=== PATIENT | female | born 1980 | race Asian ===

== ENCOUNTER 2025-04-16 16:17 | Emergency (ER) | payer SELFPAY ==
[2025-04-16 16:20] VITALS: BP 156/93; PULSE 89; RESP 20; TEMP 36.6; O2SAT 99; BMI 23.4
--- NOTE | 2025-04-16 16:29 | ED.PSYCH ---
HPI - Psych <Liat Clinton DO - Last Filed: 04/17/25 17:57> General Chief Complaint: Psychiatric Symptoms Stated Complaint: SI c attempt Time Seen by Provider: 04/16/25 16:21 Source: patient, EMS, RN notes reviewed, old records reviewed and other (law enforcement) Mode of arrival: EMS Limitations: no limitations History of Present Illness HPI Narrative: 44-year-old female history of chronic suicidal ideation is visiting the area with her boyfriend. Was not cap [place] had text or called her boyfriend and told him that she was going to jump off the rocks into the water. Law enforcement EMS arrived patient did attempt to start to jump, they pulled her back. Patient did not have any fall or injuries. She was transported here via EMS. They did use soft restraints via transport and she did not wish to be transported but was not aggressive or violent towards them. Patient states that she wants to , she was quite concerned about bills and her finances and indicates this maybe 1 of the triggers. She does not answer all questions here in the department. Denies daily medications to medics. Did endorse to them she was had chronic suicidal ideation. She does not appear intoxicated but does not answer if she was had any alcohol, tobacco or other ingestions today. She asked if we can has a traffic law attorney she can leave and states she would rather go to senior care because that would be cheaper. Related Data Allergies Allergy/AdvReac Type Severity Reaction Status Date / Time No Known Drug Allergies Allergy Verified 04/16/25 17:29 Review of Systems <Liat Clinton DO - Last Filed: 04/17/25 17:57> Review of Systems ROS Unobtainable: All systems reviewed & are unremarkable except as noted in HPI and below Patient History <Liat Clinton DO - Last Filed: 04/17/25 17:57> Social History Smoking Status: Never smoker Exam <Liat Clinton DO - Last Filed: 04/17/25 17:57> Narrative Exam Narrative: GENERAL: Alert and oriented x three, female in moderate distress. Patient does not appear intoxicated. Patient was tearful. HEENT: Head normocephalic, atraumatic, EOMI, pupils reactive, face symmetric, moist mucous membranes NECK: Supple, full range of motion CARDIOVASCULAR: Regular rate and rhythm without murmurs, rubs or gallops. RESPIRATORY: Breath sounds equal bilaterally, no wheezes rales or rhonchi. ABDOMEN: Soft, nontender. Normoactive bowel sounds all 4 quadrants. No guarding or rebound, rigidity, no mass EXTREMITIES: Normal range of motion, no clubbing or edema. Neurovascularly intact NEUROLOGICAL: Cranial nerves II through XII grossly intact. Moving all extremities SKIN: Warm, dry, no petechiae, no rashes or lesions. PSYCH: Endorses SI, depressive thoughts. Initial Vital Signs Initial Vital Signs: Vital Signs Temperature 97.8 F 04/16/25 16:20 Pulse Rate 89 04/16/25 16:20 Respiratory Rate 20 04/16/25 16:20 Blood Pressure 156/93 H 04/16/25 16:20 Pulse Oximetry 99 04/16/25 16:20 Oxygen Delivery Method Room Air 04/16/25 16:20 <Ruth Anderson DO - Last Filed: 04/17/25 02:06> Initial Vital Signs Initial Vital Signs: Vital Signs Temperature 97.8 F 04/16/25 16:20 Pulse Rate 89 04/16/25 16:20 Respiratory Rate 20 04/16/25 16:20 Blood Pressure 156/93 H 04/16/25 16:20 Pulse Oximetry 99 04/16/25 16:20 Oxygen Delivery Method Room Air 04/16/25 16:20 Course <Liat Clinton DO - Last Filed: 04/17/25 17:57> Orders Ordered: Discontinued Medications Acetaminophen (Acetaminophen 325 Mg Tablet) 650 mg PO NOW ONE Stop: 04/16/25 18:17 Last Admin: 04/16/25 18:26 Dose: 650 mg Documented By: TYLER Vital Signs Vital signs: Vital Signs - 8 hr 04/16/25 20:34 04/17/25 00:39 Temperature 97.9 F 98.1 F Pulse Rate 66 71 Respiratory Rate 16 18 Blood Pressure 110/66 116/71 Pulse Oximetry 98 Oxygen Delivery Method Room Air Room Air <DO Gurpreet Lopez Last Filed: 04/17/25 02:06> Orders Ordered: Discontinued Medications Acetaminophen (Acetaminophen 325 Mg Tablet) 650 mg PO NOW ONE Stop: 05/20/25 18:17 Last Admin: 04/16/25 18:26 Dose: 650 mg Documented By: TYLER Vital Signs Vital signs: Vital Signs - 8 hr 04/16/25 20:34 04/17/25 00:39 Temperature 97.9 F 98.1 F Pulse Rate 66 71 Respiratory Rate 16 18 Blood Pressure 110/66 116/71 Pulse Oximetry 98 Oxygen Delivery Method Room Air Room Air MDM - Psych <Liat Rios Oz, - Last Filed: 04/17/25 17:57> Lab Data 04/16/25 16:34 04/16/25 16:34 Labs: Lab Results 04/16/25 04/16/25 04/16/25 Range/Units 16:20 16:34 16:34 WBC 8.5 (4.5-11.0) X10^3/uL RBC 5.05 (4.0-5.2) X10^6/uL Hgb 12.8 (12.0-16.0) g/dL Hct 39.4 (36-46) % MCV 77.9 L (80-100) fL MCH 25.4 L (26-34) PG MCHC 32.5 (30-36) % RDW 13.6 (11.6-14.8) % Plt Count 404 H (150-400) X10^3/uL Neut % (Auto) 50.3 (50-75) % Lymph % (Auto) 42.9 H (25-40) % [place] % (Auto) 5.1 (3-14) % Eos % (Auto) 1.2 L (2-4) % Baso % (Auto) 0.5 (0-2) % Neut # (Auto) 4300 (0669-6454) /uL Lymph # (Auto) 3600 (9720-3646) /uL [place] # (Auto) 400 (0-900) /uL Eos # (Auto) 100 (0-450) /uL Baso # (Auto) 0 (0-100) /uL Sodium 145 (137-145) mmol/L Potassium 3.7 (3.4-5.1) mmol/L Chloride 108 H (98-107) mmol/L Carbon Dioxide 25 (22-32) mmol/L BUN 10 (7-17) mg/dL Creatinine 0.42 L (0.52-1.04) mg/dL Estimated GFR > 60 (>60) mL/min BUN/Creatinine Ratio 23.8 H (6-22) Glucose 95 (70-99) mg/dL Calcium 9.2 (8.4-10.2) mg/dL Total Bilirubin 0.4 (0.2-1.3) mg/dL AST 31 (14-36) IU/L ALT 24 (<35) IU/L Alkaline Phosphatase 54 (38-126) U/L Total Protein 8.5 H (6.3-8.2) g/dL Albumin 4.8 (3.5-5.0) g/dL Globulin 3.7 (1.7-4.1) g/dL Albumin/Globulin Ratio 1.3 (1.0-2.8) TSH 0.30 L (0.47-4.68) uIU/mL Free T4 1.44 (0.78-2.19) ng/dL Salicylates < 1.0 (<20) mg/dL U Opiates 300ng/mL cut (Negative) Ur Oxycodone Screen (Negative) Urine Methadone Screen (Negative) Acetaminophen < 10 (10-30) ug/mL Ur Barbiturates Screen (Negative) U Tricyclic Antidepress (Negative) Ur Phencyclidine Scrn (Negative) Ur Amphetamines Screen (Negative) U Methamphetamines Scrn (Negative) Ur MDMA Scrn (Ecstasy) (Negative) U Benzodiazepines Scrn (Negative) Urine Cocaine Screen (Negative) U Marijuana (THC) Screen (Negative) Urine pH (Normal) Urine Specific [place] (Normal) Ethyl Alcohol 146 H Cancelled ( - 10) mg/dL Ur Creatinine (Normal) SARS-CoV-2 (PCR) Negative (Negative) 04/16/25 04/16/25 Range/Units 16:42 20:00 WBC (4.5-11.0) X10^3/uL RBC (4.0-5.2) X10^6/uL Hgb (12.0-16.0) g/dL Hct (36-46) % MCV (80-100) fL MCH (26-34) PG MCHC (30-36) % RDW (11.6-14.8) % Plt Count (150-400) X10^3/uL Neut % (Auto) (50-75) % Lymph % (Auto) (25-40) % [place] % (Auto) (3-14) % Eos % (Auto) (2-4) % Baso % (Auto) (0-2) % Neut # (Auto) (8616-1428) /uL Lymph # (Auto) (3143-4166) /uL [place] # (Auto) (0-900) /uL Eos # (Auto) (0-450) /uL Baso # (Auto) (0-100) /uL Sodium (137-145) mmol/L Potassium (3.4-5.1) mmol/L Chloride (98-107) mmol/L Carbon Dioxide (22-32) mmol/L BUN (7-17) mg/dL Creatinine (0.52-1.04) mg/dL Estimated GFR (>60) mL/min BUN/Creatinine Ratio (6-22) Glucose (70-99) mg/dL Calcium (8.4-10.2) mg/dL Total Bilirubin (0.2-1.3) mg/dL AST (14-36) IU/L ALT (<35) IU/L Alkaline Phosphatase (38-126) U/L Total Protein (6.3-8.2) g/dL Albumin (3.5-5.0) g/dL Globulin (1.7-4.1) g/dL Albumin/Globulin Ratio (1.0-2.8) TSH (0.47-4.68) uIU/mL Free T4 (0.78-2.19) ng/dL Salicylates (<20) mg/dL U Opiates 300ng/mL cut Negative (Negative) Ur Oxycodone Screen Negative (Negative) Urine Methadone Screen Negative (Negative) Acetaminophen (10-30) ug/mL Ur Barbiturates Screen Negative (Negative) U Tricyclic Antidepress Negative (Negative) Ur Phencyclidine Scrn Negative (Negative) Ur Amphetamines Screen Negative (Negative) U Methamphetamines Scrn Negative (Negative) Ur MDMA Scrn (Ecstasy) Negative (Negative) U Benzodiazepines Scrn Negative (Negative) Urine Cocaine Screen Negative (Negative) U Marijuana (THC) Screen Negative (Negative) Urine pH Normal (Normal) Urine Specific [place] Normal (Normal) Ethyl Alcohol 68 H ( - 10) mg/dL Ur Creatinine Normal (Normal) SARS-CoV-2 (PCR) (Negative) Urine Dip Bedside Urine Glucose Negative Bedside Urine Bilirubin - Negative Bedside Urine Ketone - Negative Urine Specific [place] 1.010 Bedside Urine Occult Blood +/- Bedside Urine pH 6.5 Bedside Urine Protein - Negative Bedside Urine Urobilinogen - Negative Bedside Urine Nitrite - Negative Bedside Urine Leukocytes +/- 15 Esterase MDM Narrative Medical decision making narrative: 44-year-old female with suicidal ideation and attempt witnessed by law enforcement attempting to jump off thyroxine cap [place]. Had also messaged her boyfriend. Patient indicates she has a lot of financial stressors which maybe triggering some of this. Law enforcement initially at bedside was clear with the patient myself as well as law enforcement that she can not leave. Patient is aware that if she attempts to run away she would be stopped and if left the department law enforcement would be contacted to bring her back. Patient signed out to Dr. Anderson, while awaiting work and final disposition. Dr. Anderson-patient 44-year-old female signed out to me by Dr. Clinton. I have seen evaluated her myself. She was about to jump off a ray, when she was pulled back by a police officers. She was intoxicated at the time with an alcohol level of 146. Upon re-evaluation alcohol level 68. Reports that she was ?fine.She does not talk to her boyfriend about what she was feeling she keeps everything inside she was really not able to contract for safety. All of her family is in [facility] [place]. She has 2 sons who want to come live with her should she does not have home or space. She was having significant stressors and financial difficulty not able to accommodate that at this time. Constantly worried about bills. Feels safe at home with her boyfriend. Due to patient's attempt today, almost jumped off a ray inability to contract for safety not wanting medical treatment at this time I do think she would benefit from DCR evaluation. DCR evaluated patient this time not detainable she was not want to go voluntarily. Can contract for safety with him. She will be staying with a boyfriend for the next couple of days. I have discussed with patient myself as well that if feeling like she may harm herself that she needs to reach out and can come to the emergency department any time. Discussion with patient recommended that she come back to the emergency department at any time she understands she states that she will talk with the boyfriend if needed <Ruth Anderson, DO - Last Filed: 04/17/25 02:06> Lab Data Labs: Lab Results 04/16/25 04/16/25 04/16/25 Range/Units 16:20 16:34 16:34 WBC 8.5 (4.5-11.0) X10^3/uL RBC 5.05 (4.0-5.2) X10^6/uL Hgb 12.8 (12.0-16.0) g/dL Hct 39.4 (36-46) % MCV 77.9 L (80-100) fL MCH 25.4 L (26-34) PG MCHC 32.5 (30-36) % RDW 13.6 (11.6-14.8) % Plt Count 404 H (150-400) X10^3/uL Neut % (Auto) 50.3 (50-75) % Lymph % (Auto) 42.9 H (25-40) % [place] % (Auto) 5.1 (3-14) % Eos % (Auto) 1.2 L (2-4) % Baso % (Auto) 0.5 (0-2) % Neut # (Auto) 4300 (9451-4583) /uL Lymph # (Auto) 3600 (1859-8266) /uL [place] # (Auto) 400 (0-900) /uL Eos # (Auto) 100 (0-450) /uL Baso # (Auto) 0 (0-100) /uL Sodium 145 (137-145) mmol/L Potassium 3.7 (3.4-5.1) mmol/L Chloride 108 H (98-107) mmol/L Carbon Dioxide 25 (22-32) mmol/L BUN 10 (7-17) mg/dL Creatinine 0.42 L (0.52-1.04) mg/dL Estimated GFR > 60 (>60) mL/min BUN/Creatinine Ratio 23.8 H (6-22) Glucose 95 (70-99) mg/dL Calcium 9.2 (8.4-10.2) mg/dL Total Bilirubin 0.4 (0.2-1.3) mg/dL AST 31 (14-36) IU/L ALT 24 (<35) IU/L Alkaline Phosphatase 54 (38-126) U/L Total Protein 8.5 H (6.3-8.2) g/dL Albumin 4.8 (3.5-5.0) g/dL Globulin 3.7 (1.7-4.1) g/dL Albumin/Globulin Ratio 1.3 (1.0-2.8) TSH 0.30 L (0.47-4.68) uIU/mL Free T4 1.44 (0.78-2.19) ng/dL Salicylates < 1.0 (<20) mg/dL U Opiates 300ng/mL cut (Negative) Ur Oxycodone Screen (Negative) Urine Methadone Screen (Negative) Acetaminophen < 10 (10-30) ug/mL Ur Barbiturates Screen (Negative) U Tricyclic Antidepress (Negative) Ur Phencyclidine Scrn (Negative) Ur Amphetamines Screen (Negative) U Methamphetamines Scrn (Negative) Ur MDMA Scrn (Ecstasy) (Negative) U Benzodiazepines Scrn (Negative) Urine Cocaine Screen (Negative) U Marijuana (THC) Screen (Negative) Urine pH (Normal) Urine Specific [place] (Normal) Ethyl Alcohol 146 H Cancelled ( - 10) mg/dL Ur Creatinine (Normal) SARS-CoV-2 (PCR) Negative (Negative) 04/16/25 04/16/25 Range/Units 16:42 20:00 WBC (4.5-11.0) X10^3/uL RBC (4.0-5.2) X10^6/uL Hgb (12.0-16.0) g/dL Hct (36-46) % MCV (80-100) fL MCH (26-34) PG MCHC (30-36) % RDW (11.6-14.8) % Plt Count (150-400) X10^3/uL Neut % (Auto) (50-75) % Lymph % (Auto) (25-40) % [place] % (Auto) (3-14) % Eos % (Auto) (2-4) % Baso % (Auto) (0-2) % Neut # (Auto) (5347-5516) /uL Lymph # (Auto) (4902-0909) /uL [place] # (Auto) (0-900) /uL Eos # (Auto) (0-450) /uL Baso # (Auto) (0-100) /uL Sodium (137-145) mmol/L Potassium (3.4-5.1) mmol/L Chloride (98-107) mmol/L Carbon Dioxide (22-32) mmol/L BUN (7-17) mg/dL Creatinine (0.52-1.04) mg/dL Estimated GFR (>60) mL/min BUN/Creatinine Ratio (6-22) Glucose (70-99) mg/dL Calcium (8.4-10.2) mg/dL Total Bilirubin (0.2-1.3) mg/dL AST (14-36) IU/L ALT (<35) IU/L Alkaline Phosphatase (38-126) U/L Total Protein (6.3-8.2) g/dL Albumin (3.5-5.0) g/dL Globulin (1.7-4.1) g/dL Albumin/Globulin Ratio (1.0-2.8) TSH (0.47-4.68) uIU/mL Free T4 (0.78-2.19) ng/dL Salicylates (<20) mg/dL U Opiates 300ng/mL cut Negative (Negative) Ur Oxycodone Screen Negative (Negative) Urine Methadone Screen Negative (Negative) Acetaminophen (10-30) ug/mL Ur Barbiturates Screen Negative (Negative) U Tricyclic Antidepress Negative (Negative) Ur Phencyclidine Scrn Negative (Negative) Ur Amphetamines Screen Negative (Negative) U Methamphetamines Scrn Negative (Negative) Ur MDMA Scrn (Ecstasy) Negative (Negative) U Benzodiazepines Scrn Negative (Negative) Urine Cocaine Screen Negative (Negative) U Marijuana (THC) Screen Negative (Negative) Urine pH Normal (Normal) Urine Specific [place] Normal (Normal) Ethyl Alcohol 68 H ( - 10) mg/dL Ur Creatinine Normal (Normal) SARS-CoV-2 (PCR) (Negative) Urine Dip Bedside Urine Glucose Negative Bedside Urine Bilirubin - Negative Bedside Urine Ketone - Negative Urine Specific [place] 1.010 Bedside Urine Occult Blood +/- Bedside Urine pH 6.5 Bedside Urine Protein - Negative Bedside Urine Urobilinogen - Negative Bedside Urine Nitrite - Negative Bedside Urine Leukocytes +/- 15 Esterase MDM Narrative Medical decision making narrative: 44-year-old female with suicidal ideation and attempt witnessed by law enforcement attempting to jump off thyroxine [place]. Had also messaged her boyfriend. Patient indicates she has a lot of financial stressors which maybe triggering some of this. Labs Urine Law enforcement initially at bedside was clear with the patient myself as well as law enforcement that she can not leave. Patient is aware that if she attempts to run away she would be stopped and if left the department law enforcement would be contacted to bring her back. Dr. Anderson-patient 44-year-old female signed out to me by Dr. Clinton. I have seen evaluated her myself. She was about to jump off a ray, when she was pulled back by a police officers. She was intoxicated at the time with an alcohol level of 146. Upon re-evaluation alcohol level 68. Reports that she was ?fine.She does not talk to her boyfriend about what she was feeling she keeps everything inside she was really not able to contract for safety. All of her family is in [facility] [place]. She has 2 sons who want to come live with her should she does not have home or space. She was having significant stressors and financial difficulty not able to accommodate that at this time. Constantly worried about bills. Feels safe at home with her boyfriend. Due to patient's attempt today, almost jumped off a ray inability to contract for safety not wanting medical treatment at this time I do think she would benefit from DCR evaluation. DCR evaluated patient this time not detainable she was not want to go voluntarily. Can contract for safety with him. She will be staying with a boyfriend for the next couple of days. I have discussed with patient myself as well that if feeling like she may harm herself that she needs to reach out and can come to the emergency department any time. Discussion with patient recommended that she come back to the emergency department at any time she understands she states that she will talk with the boyfriend if needed Discharge Plan Departure Patient Disposition: Home Clinical Impression: Suicidal ideation, Depression Instructions: DI for Suicidal Ideation-Adult Activity Restrictions/Additional Instructions: *You have been diagnosed with suicidal ideations depression *What to do: The ER is open every day all day, you are welcome to return at any time if you feel like you need help If you are feeling suicidal or having suicidal thoughts: Call: Suicide Hotline: 889 Visit: www.[employer].org Text: 988 *Continue to take medications as directed *Follow up with your primary care provider in 2-3 days or call [phone] *Return to ER if you should have increasing thoughts of harming self or any new, worsening or concerning symptoms Stand Alone Forms: Patient Portal/API/Survey
[2025-04-16 16:57] LABS: Ur Creatinine Normal (Normal); Ur Specific Gravity Normal (Normal); Urine Amphetamines Negative (Negative); Urine Barbiturates Negative (Negative); Urine Benzodiazepines Negative (Negative); Urine Cocaine Negative (Negative); Urine MDMA Negative (Negative); Urine Methadone Negative (Negative); Urine Opiates Negative (Negative); Urine Oxycodone Negative (Negative); Urine Phencyclidine Negative (Negative); Urine THC Negative (Negative); Urine Tricyclic Antidepressant Negative (Negative); Urine pH Normal (Normal)
[2025-04-16 17:01] LABS: Acetaminophen < 10 ug/mL (10-30); Alanine Aminotransferase 24 IU/L (<35); Albumin 4.8 g/dL (3.5-5.0); Albumin Globulin Ratio 1.3 (1.0-2.8); Alkaline Phosphatase 54 U/L (38-126); Aspartate Aminotransferase 31 IU/L (14-36); BUN Creatinine Ratio 23.8 (6-22); Bilirubin Total 0.4 mg/dL (0.2-1.3); Blood Urea Nitrogen 10 mg/dL (7-17); Calcium 9.2 mg/dL (8.4-10.2); Carbon Dioxide 25 mmol/L (22-32); Chloride 108 mmol/L (98-107); Estimated Glomerular Filt Rate > 60 mL/min (>60); Ethanol (ETOH) 146 mg/dL; Globulin 3.7 g/dL (1.7-4.1); Glucose 95 mg/dL (70-99); HEMOLYSIS < 15 (0-50); Potassium 3.7 mmol/L (3.4-5.1); Salicylate < 1.0 mg/dL (<20); Sodium 145 mmol/L (137-145); Total Protein 8.5 g/dL (6.3-8.2)
[2025-04-16 17:07] LABS: Add Manual Diff / Slide Review NO; Basophils Absolute Auto 0 /uL (0-100); Basophils Percent Auto 0.5 % (0-2); Eosinophils Absolute Auto 100 /uL (0-450); Eosinophils Percent Auto 1.2 % (2-4); Hematocrit 39.4 % (36-46); Hemoglobin 12.8 g/dL (12.0-16.0); Lymphocytes Absolute Auto 3600 /uL (1100-4500); Lymphocytes Percent Auto 42.9 % (25-40); Mean Corpuscular HGB Conc 32.5 % (30-36); Mean Corpuscular Hemoglobin 25.4 PG (26-34); Mean Corpuscular Volume 77.9 fL (80-100); Monocytes Absolute Auto 400 /uL (0-900); Monocytes Percent Auto 5.1 % (3-14); Neutrophils Absolute Auto 4300 /uL (1500-7000); Neutrophils Percent Auto 50.3 % (50-75); Platelet Count 404 X10^3/uL (150-400); Red Blood Cell Count 5.05 X10^6/uL (4.0-5.2); Red Cell Distribution Width 13.6 % (11.6-14.8); White Blood Cell Count 8.5 X10^3/uL (4.5-11.0)
[2025-04-16 17:09] LABS: COVID19 -Nasal RAPID Negative (Negative)
--- NOTE | 2025-04-16 17:48 | PC.NURSE ---
1630: Pt reports financial concerns with owing money to a lady after helping her [id number]. Pt reports she came over from [place] and was to that man and has 2 kids, one 17 and the other 11 years old. She reports being from her but still has communication with him. Sees her children occasionally and they live in [facility]. She reports being from [place] and has a [place] assistant [place]. 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 Pt is tearful throughout our talk. She reports my head not being right and points multiple times to her head. States for 10 years she has been depressed and has tried to kill herself multiple times. Reports living out of her car at times. Currently states she is in a relationship with her boyfriend, René, who does not know about all of this. This RN asks if patient feels safe in her current home environment and she states yes. This RN asks if anyone is threatening the patient or asking her to do things against her will and she states no. Boyfriend René at bedside as of 1722. She remains tearful at times. Cooperative. Sitter remains at bedside 1:1. ANDREA Kim made aware of patient situation and financial concerns as well as prior hx with depression and SI.
[2025-04-16 17:58] LABS: Free T4, Direct Thyroxine 1.44 ng/dL (0.78-2.19)
--- NOTE | 2025-04-16 18:01 | PC.NURSE ---
Pt boyfriend leaves. OXYGEN EQUIPMENT TECHNICIAN Judy at bedside to speak with patient.
[2025-04-16] MEDS: ACETAMINOPHEN 325 MG TABLET 650 MG PO (18:26)
--- NOTE | 2025-04-16 19:07 | CM.SWNOTE ---
ED DATA CENTER MANAGER Assessment DATA CENTER MANAGER - Night Time Nanny Assessment DATA CENTER MANAGER/Night Time Nanny Assessment Time Spent with Patient Start date 04/16/25 Visit Start Time 18:00 End date 04/16/25 Visit End Time 18:30 Total time Care Management spent on 30 minutes patient visit-in minutes Mental Health Screening Include Onset, Duration, Intensity Presenting Problem Patient presents to the ED via EMS and [employer] after patient was at [facility] with intent to jump off the ray. Patient drank ETOH today, patient was visiting the area with her boyfriend, patient became upset and endorsed her intent to jump. Patient's boyfriend called 911 and patient states if boyfriend did not call 911 that patient would have jumped . [facility] and [facility] had to physically remove her from the ray. Precipitating Event(s) Patient endorses significant financial stressors and concerns for being able to provide for her children who reside with their father. Patient has been staying in her car or renting a room from a friend. Patient states that she does not talk about her stress and concerns with anyone and her boyfriend does not know the extent of her financial issues. Patient endorses concern for self doubt, feelings of unworthiness, patient is very hard on her self. Patient does not sleep, patient states she tries to stay busy, patient states that she does not eat a lot. Patient states that she is constantly worried about her financial issues and does not have enough money to pay her bills. Patient states she informed her primary care provider about her situation, PCP recommended a therapist and patient did not follow through . Patient Strengths Patient has some support from her boyfriend and from a coworker. Current Behavioral Health Provider(s) No current provider Include Facility, Provider, Ph. # Psych. Hx Mental Health and Chemical Hx of Depression, anxiety, SI Dependency and suicide attempts. Patient engages in drinking alcohol, no other substances reported. Patient is not prescribed any medications. Family Hx of Behavioral Abuse Patient's family lives in [facility], patient does not talk about her issues with her family. Psychiatric Hospitalizations (date(s)/ No hx reported location) Psychosocial information & Support Patient is 44 y/o female who Systems resides in [place], [place]. Patient states that she rents a room from a friend. Patient states that sometimes she stays in her car. Patient's boyfriend resides in [place]. Patient states her two children reside with their father and she sees them as often as she can for visits. Patient states she does not have any local family. Patient states that she does not discuss her mental health issues with others. 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 Legal Concerns Legal Matters - Outstanding Issues None reported Mental Status Orientation (Person/Place/Time) A/Ox4 Stated Mood ok Affect (Congruent with Mood?) dysthymic, tearful, anxious. Thought Content - Specify/Describe None reported Obsessions, Delusions, Hallucinations Thought Processes (Brbbbqh-Aefuwbou-Lsuo detailed, circumstantial, Ohvwliay-Mmxxcfnb-Kijjmguciv- coherent Vepgusvxqnsxfu-Mjghjta-Dwpzrynjggln- Thought Blocking) Speech (Khmqtc-Pbbf-Gsijipl-Rapid-Soft- normal Loud-Pressured) Motor (Zybzkj-Orqgdmnnq-Daca-Other) normal Insight (Cull-Guyg-Ytqr/Limited) limited Judgement (Zeaf-Liii-Xqfp/Limited) limited Impulse Control (Adequate-Impaired) adequate during assessment Memory (Omnldumti-Zgcwgn-Bsfsry, intact, not formally assessed Impaired-Intact) Concentration (Intact-Impaired) intact Attention (Intact-Impaired) intact Behavior (Appropriate-Inappropriate) appropriate Additional Comment Patient presents as calm, cooperative and communicative Risk Assessment Suicidal Ideation (Plan) Yes Homicidal Ideation (Plan) No Comment Patient endorses concern for SI today and endorses hx of SI and previous suicide attempts . Patient states that she has attempted to hang herself and attempted to kill herself by drinking a whole bottle of aileen. Patient states that she has looked for various ways to kill herself and thought about taking pills. Patient states that today she had thoughts of jumping off the [place] ray and if her boyfriend did not call 911 she would have jumped. Patient states she thinks about her kids and thinks about how she wants to provide for them but then thinks about how much she is struggling and how difficult it is to financially support them. Intervention Intervention DATA CENTER MANAGER enters room to meet with patient. Patient endorses preference to speak privately. Patient endorses several financial stressors, concern for her self doubt and barriers of providing for her family, patient endorses concern for hx of Depression, significant SI and hx of suicide attempts. Patient states that today she had intentions of jumping off the ray. Patient presents with concern about people knowing about her struggles, patient endorses that she just wants to be busy , work and mask her issues. Patient states that she does not sleep and she does not eat a lot. Patient endorses that she is constantly worried about providing for her kids. DATA CENTER MANAGER discusses inpatient hospitalization and patient does not give a clear direct answer and continues to state that she wants to be busy and work. Patient is not agreeable at this time to inpatient hospitalization and has made several statements of wanting to go home. DATA CENTER MANAGER endorses to patient that it is the opinion of this DATA CENTER MANAGER that patient seek inpatient hospitalization. It is the opinion of this DATA CENTER MANAGER that patient would benefit from and be appropriate for inpatient hospitalization for safety, crisis stabilization and medication management. It is the opinion of this DATA CENTER MANAGER that patient will likely need DCR evaluation to determine [facility] placement eligibility. DATA CENTER MANAGER reviews this with ED provider who indicates agreement and understanding. Plan RA Plan ED team to dispatch DCR upon medical clearance EDITH Lua
--- NOTE | 2025-04-16 19:14 | CM.SWNOTE ---
ED CONSUMER MARKETING MANAGER Note CONSUMER MARKETING MANAGER to provide patient with housing, financial and food resources for her community. CONSUMER MARKETING MANAGER also to provide patient with crisis and MH resources. ED team to dispatch DCR upon medical clearance. QASIM LuaSW
[2025-04-16 20:34] VITALS: BP 110/66; PULSE 66; RESP 16; TEMP 36.6; O2SAT 98
[2025-04-16 20:41] LABS: Ethanol (ETOH) 68 mg/dL
--- NOTE | 2025-04-16 23:05 | PC.NURSE ---
KOLE Rodriges calls and talks with this RN and has questions about today's events and her medical history. Requests patient records to be faxed to [phone]. Informs this RN that he will come out and see the patient face to face. Provider Justin is made aware.
--- NOTE | 2025-04-16 23:15 | PC.NURSE ---
Dispatched DCR @[id number]. Sent [employer] report, Doc note, Nurse note, TACK PICKER note and Officers Mental Health Contact Report to
[2025-04-17 00:39] VITALS: BP 116/71; PULSE 71; RESP 18; TEMP 36.7
== END 2025-04-17 00:54 | disposition home or self-care (01) ==
PROVIDERS: Emergency Medicine; Emergency Provider Emergency Medicine
DX: R45.851 Suicidal ideations (principal); F32.A Depression, unspecified
CPT/HCPCS: 36415; 80053; 80305; 80320; 80329; 81003; 84439; 84443; 85025; 87635; 99284; G0480